=== PATIENT | female | born 1980 | race Two or more races ===

== ENCOUNTER → 2017-08-03 | Outpatient (CLI) | payer OTHER | END | disposition home or self-care (01) | LOC: LAB 11:20 | PROVIDERS: ATTEND Physician Assistant | DX: Z20.9 Contact with and (suspected) exposure to unspecified communicable disease (principal) | CPT/HCPCS: 36415; 86706; 86735; 86762; 86765; 86787 ==

== ENCOUNTER 2018-06-09 11:11 | Emergency (ER) | payer BC, MEDICAID ==
[~2018-06-09] VITALS: Ht 165.1 cm; Wt 127.5 kg
[2018-06-09 11:18] VITALS: BP 137/80
== END 2018-06-09 14:52 | disposition home or self-care (01) ==
LOC: ER 11:11
DX: E04.1 Nontoxic single thyroid nodule (principal); R20.8 Other disturbances of skin sensation
CPT/HCPCS: 70490; 93005

== ENCOUNTER → 2020-05-29 | Outpatient (CLI) | payer OTHER | END | disposition home or self-care (01) | LOC: LAB 17:17 | PROVIDERS: ATTEND Nurse Practitioner | DX: Z77.21 Contact with and (suspected) exposure to potentially hazardous body fluids (principal) | CPT/HCPCS: 36415; 86703; 86706; 86803; 87340 ==

== ENCOUNTER → 2020-06-09 | Outpatient (CLI) | payer OTHER ==
[2020-06-09 12:58] LABS: Alanine Aminotransferase 19 U/L (13-56); Albumin 3.8 g/dL (3.4-5.0); Bilirubin, Direct < 0.1 mg/dL (0-0.2)
[2020-06-09 13:00] LABS: Alkaline Phosphatase 69 U/L (45-117); Aspartate Aminotransferase 16 U/L (15-37); Bilirubin, Total 0.3 mg/dL (0.2-1.0)
== END | disposition home or self-care (01) ==
LOC: LAB 12:30
PROVIDERS: ATTEND Preventive Medicine Preventive Medicine/Occupational Environmental Medicine
DX: Z00.00 Encounter for general adult medical examination without abnormal findings (principal)
CPT/HCPCS: 36415; 80076

== ENCOUNTER → 2020-11-12 | Outpatient (CLI) | payer BC ==
[2020-11-12 13:49] LABS: Basophils # (auto) 0.1 10 ^3/uL (0-0.2); Eosinophils # (auto) 0.1 10 ^3/uL (0-0.8); Hemoglobin 10.9 g/dL (12.2-16.2); Mean Corpuscular Hemoglobin 22.8 pg (28.0-32.0); Monocytes # (auto) 0.4 10 ^3/uL (0-1.3); White Blood Cell 5.3 10^3/uL (4.4-10.8)
[2020-11-12 13:51] LABS: Basophils % (auto) 1.5 % (0.0-2.0); Eosinophils % (auto) 1.9 % (0.0-7.0); Hematocrit 34.9 % (36.0-46.0); Lymphocytes # (auto) 1.7 10 ^3/uL (0.4-5.4); Lymphocytes % (auto) 32.5 % (10.0-50.0); Mean Corpuscular Hgb Conc. 31.2 g/dL (32.0-36.0); Monocytes % (auto) 7.2 % (0.0-12.0); Neutrophils % (auto) 56.9 % (37.0-80.0); Nucleated Red Blood Cells % 0.1 %; Platelet Count (auto) 399 10^3/uL (140-450); Red Blood Cells 4.79 10^6/uL (4.0-5.20)
[2020-11-12 14:24] LABS: Albumin 3.7 g/dL (3.4-5.0); Calcium 8.7 mg/dL (8.5-10.1); Potassium 4.4 mmol/L (3.5-5.1)
[2020-11-12 14:28] LABS: BUN/Creatinine Ratio 14.3; Bilirubin, Total 0.4 mg/dL (0.2-1.0); Total Protein 7.8 g/dL (6.4-8.2)
== END | disposition home or self-care (01) ==
LOC: LAB 13:35
PROVIDERS: ATTEND Internal Medicine
DX: Z00.00 Encounter for general adult medical examination without abnormal findings (principal); E04.1 Nontoxic single thyroid nodule; Z83.3 Family history of diabetes mellitus
CPT/HCPCS: 36415; 80053; 80061; 83036; 84439; 84443; 85025

== ENCOUNTER → 2020-12-24 | Outpatient (CLI) | payer BC | END | disposition home or self-care (01) | LOC: LAB 14:09 | PROVIDERS: ATTEND Internal Medicine | DX: R30.9 Painful micturition, unspecified (principal) | CPT/HCPCS: 87086 ==

== ENCOUNTER → 2021-07-16 | Outpatient (CLI) | payer BC ==
[2021-07-16 15:23] LABS: BUN/Creatinine Ratio 13.5; Calcium 8.2 mg/dL (8.5-10.1)
== END | disposition home or self-care (01) ==
LOC: LAB 14:24
PROVIDERS: ATTEND Internal Medicine
DX: D64.9 Anemia, unspecified (principal)
CPT/HCPCS: 36415; 80048

== ENCOUNTER → 2022-06-22 | Outpatient (CLI) | payer BC ==
[2022-06-23 05:06] LABS: RPR Non Reactive (Non Reactive)
== END | disposition home or self-care (01) ==
LOC: LAB 09:47
PROVIDERS: ATTEND Internal Medicine
DX: Z11.3 Encounter for screening for infections with a predominantly sexual mode of transmission (principal)
CPT/HCPCS: 36415; 86592; 86703; 86803

== ENCOUNTER → 2022-06-29 | Outpatient (CLI) | payer BC ==
[2022-06-29 09:15] LABS: Basophils # (auto) 0.1 10 ^3/uL (0-0.2); Eosinophils # (auto) 0.1 10 ^3/uL (0-0.8); Eosinophils % (auto) 2.6 % (0.0-7.0); Hematocrit 34.8 % (36.0-46.0); Hemoglobin 10.4 g/dL (12.2-16.2); Lymphocytes # (auto) 1.5 10 ^3/uL (0.4-5.4); Lymphocytes % (auto) 31.4 % (10.0-50.0); Mean Corpuscular Hemoglobin 21.3 pg (28.0-32.0); Mean Corpuscular Volume 71.1 fL (80.0-100.0); Monocytes # (auto) 0.4 10 ^3/uL (0-1.3); Monocytes % (auto) 8.1 % (0.0-12.0); Neutrophils # (auto) 2.6 10 ^3/uL (1.6-8.6); Neutrophils % (auto) 55.9 % (37.0-80.0); Nucleated Red Blood Cells % 0.1 %; Red Blood Cells 4.89 10^6/uL (4.0-5.20); Red Cell Distribution Width 24.2 % (11.8-14.3); White Blood Cell 4.7 10^3/uL (4.4-10.8)
[2022-06-29 09:59] LABS: Leuteinizing Hormone 4.6 IU/L
[2022-06-29 10:00] LABS: Follicle Stimulating Hormone 6.94 IU/L (SEE BELOW)
== END | disposition home or self-care (01) ==
LOC: LAB 08:47
PROVIDERS: ATTEND Obstetrics & Gynecology
DX: N93.9 Abnormal uterine and vaginal bleeding, unspecified (principal)
CPT/HCPCS: 36415; 82670; 83001; 83002; 84403; 84443; 85025

== ENCOUNTER → 2022-07-16 | Outpatient (CLI) | payer BC | END | disposition home or self-care (01) | LOC: LAB 11:10 | PROVIDERS: ATTEND Obstetrics & Gynecology Obstetrics | DX: N93.9 Abnormal uterine and vaginal bleeding, unspecified (principal) | CPT/HCPCS: 88302 ==

== ENCOUNTER → 2022-09-06 | Outpatient (CLI) | payer BC ==
[2022-09-06 07:51] LABS: Basophils # (auto) 0.1 10 ^3/uL (0-0.2); Eosinophils # (auto) 0.2 10 ^3/uL (0-0.8); Eosinophils % (auto) 2.8 % (0.0-7.0); Monocytes # (auto) 0.5 10 ^3/uL (0-1.3); Neutrophils # (auto) 2.9 10 ^3/uL (1.6-8.6); Red Cell Distribution Width 17.8 % (11.8-14.3); White Blood Cell 5.6 10^3/uL (4.4-10.8)
[2022-09-06 07:56] LABS: Basophils % (auto) 1.5 % (0.0-2.0); Hematocrit 37.9 % (36.0-46.0); Hemoglobin 11.9 g/dL (12.2-16.2); Mean Corpuscular Hemoglobin 24.2 pg (28.0-32.0); Mean Corpuscular Hgb Conc. 31.4 g/dL (32.0-36.0); Mean Corpuscular Volume 77.1 fL (80.0-100.0); Monocytes % (auto) 8.2 % (0.0-12.0); Neutrophils % (auto) 51.5 % (37.0-80.0); Nucleated Red Blood Cells % 0.3 %; Red Blood Cells 4.91 10^6/uL (4.0-5.20)
[2022-09-06 08:17] LABS: Albumin 3.7 g/dL (3.4-5.0); Calcium 9.1 mg/dL (8.5-10.1); Potassium 4.3 mmol/L (3.5-5.1)
[2022-09-06 08:19] LABS: BUN/Creatinine Ratio 17.3; Bilirubin, Total 0.3 mg/dL (0.2-1.0); Total Protein 7.6 g/dL (6.4-8.2)
[2022-09-06 08:26] LABS: Follicle Stimulating Hormone 6.51 IU/L (SEE BELOW); T3 Total 0.95 ng/mL (0.60-1.81)
== END | disposition home or self-care (01) ==
LOC: LAB 07:21
DX: E34.9 Endocrine disorder, unspecified (principal)
CPT/HCPCS: 36415; 80053; 82306; 82607; 82670; 83001; 84144; 84403; 84436; 84443; 84480; 85025; 86376

== ENCOUNTER → 2022-11-05 | Outpatient (CLI) | payer BC ==
[2022-11-05 14:57] LABS: T3 Total 0.99 ng/mL (0.60-1.81)
[2022-11-05 14:58] LABS: Free T3 2.97 pg/mL (2.3-4.2)
== END | disposition home or self-care (01) ==
LOC: LAB 14:02
DX: N92.0 Excessive and frequent menstruation with regular cycle (principal); E55.9 Vitamin D deficiency, unspecified
CPT/HCPCS: 36415; 82306; 84436; 84443; 84480; 84481

== ENCOUNTER 2022-12-18 03:45 | Emergency (ER) | payer BC ==
[~2022-12-18] VITALS: Ht 165.1 cm; Wt 134.4 kg
[2022-12-18 04:34] LABS: Eosinophils # (auto) 0.1 10 ^3/uL (0-0.8); Lymphocytes # (auto) 1.5 10 ^3/uL (0.4-5.4); Monocytes # (auto) 0.5 10 ^3/uL (0-1.3); White Blood Cell 6.7 10^3/uL (4.4-10.8)
[2022-12-18 04:35] LABS: Basophils # (auto) 0.2 10 ^3/uL (0-0.2); Basophils % (auto) 2.5 % (0.0-2.0); Eosinophils % (auto) 1.3 % (0.0-7.0); Hemoglobin 10.6 g/dL (12.2-16.2); Lymphocytes % (auto) 21.7 % (10.0-50.0); Mean Corpuscular Hemoglobin 22.2 pg (28.0-32.0); Mean Corpuscular Hgb Conc. 31.1 g/dL (32.0-36.0); Mean Corpuscular Volume 71.5 fL (80.0-100.0); Monocytes % (auto) 8.2 % (0.0-12.0); Neutrophils # (auto) 4.4 10 ^3/uL (1.6-8.6); Neutrophils % (auto) 66.3 % (37.0-80.0); Nucleated Red Blood Cells % 0.1 %; Red Blood Cells 4.76 10^6/uL (4.0-5.20)
[2022-12-18 04:52] LABS: Albumin 3.7 g/dL (3.4-5.0); Calcium 8.8 mg/dL (8.5-10.1); Potassium 3.8 mmol/L (3.5-5.1)
[2022-12-18 04:56] LABS: BUN/Creatinine Ratio 19.8 (10.0-20.0); Bilirubin, Total 0.3 mg/dL (0.2-1.0); Total Protein 7.7 g/dL (6.4-8.2)
[2022-12-18 05:54] LABS: Urine WBC None Seen /hpf (0 - 5)
[2022-12-18] MEDS ORDERED: KETOROLAC TROMETH 30 MG/ML 1ML VIAL IV ONE (06:45)
[2022-12-18] MEDS ORDERED: SODIUM CHLORIDE 0.9% 1,000 ML IV ONE (06:45)
[2022-12-18 06:47] LABS: Urine Bacteria NONE SEEN /hpf (None Seen); Urine Blood Negative /uL (Negative); Urine Mucus FEW (None Seen)
[2022-12-18 11:15] VITALS: BP 132/84
== END 2022-12-18 11:23 | disposition home or self-care (01) ==
LOC: ER 03:45 → EEVIPCON 03:45 → ER 11:20
DX: R10.84 Generalized abdominal pain (principal); N83.209 Unspecified ovarian cyst, unspecified side; Z98.51 Tubal ligation status
CPT/HCPCS: 36415; 74176; 76856; 80053; 81001; 83690; 85025; 96360; 99284; J7030

== ENCOUNTER → 2023-01-03 | Outpatient (CLI) | payer BC ==
[2023-01-03 12:40] LABS: Free T4 (Free Thyroxine) 1.01 ng/dL (0.89-1.76)
[2023-01-03 12:41] LABS: Free T3 3.63 pg/mL (2.3-4.2); T3 Total 1.29 ng/mL (0.60-1.81)
== END | disposition home or self-care (01) ==
LOC: LAB 11:10
DX: Z11.4 Encounter for screening for human immunodeficiency virus [HIV] (principal)
CPT/HCPCS: 36415; 84436; 84439; 84443; 84480; 84481; 86703

== ENCOUNTER 2023-02-02 20:28 | Emergency (ER) | payer BC ==
[~2023-02-02] VITALS: Ht 165.1 cm; Wt 131.9 kg
[2023-02-02 21:54] LABS: Urine Bacteria NONE SEEN /hpf (None Seen); Urine Blood Negative /uL (Negative); Urine Hyaline Cast FEW /lpf (0 - 2); Urine Mucus MODERATE (None Seen); Urine Specific Gravity 1.028 (1.001-1.035); Urine WBC 3 /hpf (0 - 5)
[2023-02-02] MEDS ORDERED: KETOROLAC TROMETH 30 MG/ML 1ML VIAL IM ONE (22:15)
[2023-02-02] MEDS ORDERED: ONDANSETRON ODT 4 MG TAB PO ONE (22:15)
[2023-02-02 22:17] LABS: Eosinophils # (auto) 0 10 ^3/uL (0-0.8); Hematocrit 34.4 % (36.0-46.0); Hemoglobin 10.6 g/dL (12.2-16.2); White Blood Cell 8.3 10^3/uL (4.4-10.8)
[2023-02-02 22:19] LABS: Basophils # (auto) 0.1 10 ^3/uL (0-0.2); Basophils % (auto) 0.7 % (0.0-2.0); Lymphocytes # (auto) 1.2 10 ^3/uL (0.4-5.4); Lymphocytes % (auto) 15.1 % (10.0-50.0); Mean Corpuscular Hemoglobin 21.3 pg (28.0-32.0); Mean Corpuscular Hgb Conc. 30.9 g/dL (32.0-36.0); Monocytes # (auto) 0.4 10 ^3/uL (0-1.3); Monocytes % (auto) 5.1 % (0.0-12.0); Neutrophils # (auto) 6.5 10 ^3/uL (1.6-8.6); Neutrophils % (auto) 79.1 % (37.0-80.0); Red Blood Cells 4.98 10^6/uL (4.0-5.20); Red Cell Distribution Width 18.1 % (11.8-14.3)
[2023-02-02 22:39] LABS: Albumin 3.6 g/dL (3.4-5.0); BUN/Creatinine Ratio 8.7 (10.0-20.0); Calcium 8.8 mg/dL (8.5-10.1); Potassium 3.7 mmol/L (3.5-5.1)
[2023-02-02 22:41] LABS: Bilirubin, Total 0.4 mg/dL (0.2-1.0)
[2023-02-02 23:24] VITALS: BP 149/91
[2023-02-02] MEDS ORDERED: DICY10CA PO (23:55)
[2023-02-02] MEDS ORDERED: LOPE1TAB9 PO (23:55)
== END 2023-02-03 00:24 | disposition home or self-care (01) ==
LOC: ER 20:30
DX: K52.9 Noninfective gastroenteritis and colitis, unspecified (principal); Z98.51 Tubal ligation status
CPT/HCPCS: 36415; 74176; 76856; 80053; 81001; 83690; 85025; 96372; 99285; J1885; Q0162

== ENCOUNTER → 2023-03-23 | Outpatient (CLI) | payer BC ==
[~2023-03-23] MED LIST: DICY10CA PO; LOPE1TAB9 PO
[2023-03-23 10:15] LABS: Free T4 (Free Thyroxine) 0.94 ng/dL (0.89-1.76)
[2023-03-23 10:16] LABS: Free T3 2.93 pg/mL (2.3-4.2)
== END | disposition home or self-care (01) ==
LOC: LAB 09:16
DX: E03.9 Hypothyroidism, unspecified (principal)
CPT/HCPCS: 36415; 82306; 84439; 84443; 84481

== ENCOUNTER → 2023-06-01 | Outpatient (CLI) | payer BC ==
[2023-06-01 12:48] LABS: Free T4 (Free Thyroxine) 0.94 ng/dL (0.89-1.76)
== END | disposition home or self-care (01) ==
LOC: LAB 11:16
DX: E03.9 Hypothyroidism, unspecified (principal)
CPT/HCPCS: 36415; 84439; 84443; 84481

== ENCOUNTER → 2023-07-27 | Outpatient (CLI) | payer BC | END | disposition home or self-care (01) | LOC: LAB 09:19 | DX: E03.9 Hypothyroidism, unspecified (principal) | CPT/HCPCS: 36415; 84436; 84443; 84480 ==

== ENCOUNTER → 2023-09-07 | Outpatient (CLI) | payer BC ==
[2023-09-07 16:49] LABS: Free T3 3.61 pg/mL (2.3-4.2); Free T4 (Free Thyroxine) 0.98 ng/dL (0.89-1.76)
== END | disposition home or self-care (01) ==
LOC: LAB 15:39
DX: E34.9 Endocrine disorder, unspecified (principal)
CPT/HCPCS: 36415; 84439; 84443; 84481

== ENCOUNTER → 2023-09-15 | Outpatient (CLI) | payer BC ==
[2023-09-15 10:41] LABS: Urine Bacteria FEW /hpf (None Seen); Urine Blood Negative /uL (Negative); Urine Clarity Clear (Clear); Urine Color Colorless (Yellow); Urine Protein, UAD Negative (Negative); Urine Specific Gravity 1.008 (1.001-1.035); Urine Urobilinogen Normal (Negative); Urine WBC <1 /hpf (0 - 5); Urine pH 5.5 (5.0-8.0)
[2023-09-15 11:06] LABS: Basophils # (auto) 0.1 10 ^3/uL (0-0.2); Basophils % (auto) 1.4 % (0.0-2.0); Eosinophils # (auto) 0.1 10 ^3/uL (0-0.8); Hemoglobin 8.3 g/dL (12.2-16.2); Lymphocytes # (auto) 1.9 10 ^3/uL (0.4-5.4); Mean Corpuscular Hemoglobin 17.5 pg (28.0-32.0); Mean Corpuscular Volume 61.2 fL (80.0-100.0); Monocytes # (auto) 0.5 10 ^3/uL (0-1.3)
[2023-09-15 11:08] LABS: Eosinophils % (auto) 1.5 % (0.0-7.0); Hematocrit 29.2 % (36.0-46.0); Lymphocytes % (auto) 35.3 % (10.0-50.0); Mean Corpuscular Hgb Conc. 28.5 g/dL (32.0-36.0); Monocytes % (auto) 8.7 % (0.0-12.0); Neutrophils # (auto) 2.8 10 ^3/uL (1.6-8.6); Neutrophils % (auto) 53.1 % (37.0-80.0); Nucleated Red Blood Cells % 0.2 %; Red Blood Cells 4.78 10^6/uL (4.0-5.20); White Blood Cell 5.3 10^3/uL (4.4-10.8)
[2023-09-15 11:20] LABS: Alanine Aminotransferase 16 U/L (7-40); Alkaline Phosphatase 54 U/L (46-116); Anion Gap 7 (5-15); BUN/Creatinine Ratio 10.8 (10.0-20.0); Blood Urea Nitrogen 8 mg/dL (9-23); Calcium 9.3 mg/dL (8.5-10.1); Carbon Dioxide 26 mmol/L (20-30); Chloride 107 mmol/L (98-107); Glucose 90 mg/dL (74-106); LDL Cholesterol 101 mg/dL (< 100); Potassium 4.1 mmol/L (3.5-5.1); Sodium 140 mmol/L (136-145); Triglycerides 86 mg/dL (< 150)
[2023-09-15 11:21] LABS: Albumin 4.3 g/dL (3.2-4.8); Aspartate Aminotransferase 20 U/L (13-40); Cholesterol 153 mg/dL (< 200)
[2023-09-15 11:22] LABS: Bilirubin, Total 0.3 mg/dL (0.2-1.0); HDL Cholesterol 38 mg/dL (40-59); Total Protein 7.2 g/dL (5.7-8.2)
[2023-09-15 12:04] LABS: Hypochromia Marked; Platelet Estimate Adequate
== END | disposition home or self-care (01) ==
LOC: LAB 09:56
PROVIDERS: ATTEND Nurse Practitioner Gerontology
DX: Z00.01 Encounter for general adult medical examination with abnormal findings (principal); E66.01 Morbid (severe) obesity due to excess calories
CPT/HCPCS: 36415; 80053; 80061; 81001; 82306; 83036; 85025

== ENCOUNTER 2023-10-27 17:39 | Emergency (ER) | payer BC ==
[~2023-10-27] VITALS: Ht 165.1 cm; Wt 125.0 kg
[2023-10-27 19:00] VITALS: BP 127/78; PULSE 94; RESP 16; TEMP 97.3; O2SAT 100
[2023-10-27] MEDS ORDERED: HYDR-4902 PO (20:00)
[2023-10-27] MEDS: HYDROcodone-ACET 5/325MG TAB PO ONE (20:12)
== END 2023-10-27 20:20 | disposition home or self-care (01) ==
LOC: ER 17:39
DX: S83.8X1A Sprain of other specified parts of right knee, initial encounter (principal); I80.01 Phlebitis and thrombophlebitis of superficial vessels of right lower extremity; Z98.890 Other specified postprocedural states; Z79.899 Other long term (current) drug therapy; X58.XXXA Exposure to other specified factors, initial encounter; Y93.39 Activity, other involving climbing, rappelling and jumping off; Y92.89 Other specified places as the place of occurrence of the external cause; Y99.8 Other external cause status
CPT/HCPCS: 29505; 73562; 93971

== ENCOUNTER → 2023-11-04 | Outpatient (CLI) | payer BC ==
[~2023-11-04] MED LIST changes: +HYDR-4902 PO
[2023-11-04 10:47] LABS: Basophils # (auto) 0.1 10 ^3/uL (0-0.2); Eosinophils # (auto) 0.1 10 ^3/uL (0-0.8); Eosinophils % (auto) 1.6 % (0.0-7.0); Hemoglobin 8.7 g/dL (12.2-16.2); Lymphocytes # (auto) 1.6 10 ^3/uL (0.4-5.4); Mean Corpuscular Hemoglobin 17.4 pg (28.0-32.0); Mean Corpuscular Hgb Conc. 28.4 g/dL (32.0-36.0); Mean Corpuscular Volume 61.4 fL (80.0-100.0); Monocytes # (auto) 0.4 10 ^3/uL (0-1.3)
[2023-11-04 10:49] LABS: Basophils % (auto) 1.5 % (0.0-2.0); Hematocrit 30.8 % (36.0-46.0); Lymphocytes % (auto) 32.5 % (10.0-50.0); Monocytes % (auto) 7.5 % (0.0-12.0); Neutrophils # (auto) 2.8 10 ^3/uL (1.6-8.6); Neutrophils % (auto) 56.9 % (37.0-80.0); Nucleated Red Blood Cells % 0.1 %; Red Blood Cells 5.01 10^6/uL (4.0-5.20); White Blood Cell 4.9 10^3/uL (4.4-10.8)
[2023-11-04 11:10] LABS: % Iron Saturation 4.4 % (15-50); Alanine Aminotransferase 12 U/L (7-40); Albumin 4.6 g/dL (3.2-4.8); Alkaline Phosphatase 61 U/L (46-116); Anion Gap 6 (5-15); Aspartate Aminotransferase 18 U/L (13-40); BUN/Creatinine Ratio 13.8 (10.0-20.0); Blood Urea Nitrogen 11 mg/dL (9-23); Calcium 9.4 mg/dL (8.5-10.1); Carbon Dioxide 29 mmol/L (20-30); Chloride 105 mmol/L (98-107); Glucose 84 mg/dL (74-106); Sodium 140 mmol/L (136-145)
[2023-11-04 11:11] LABS: Bilirubin, Total 0.5 mg/dL (0.2-1.0); Total Protein 7.9 g/dL (5.7-8.2)
[2023-11-04 11:14] LABS: Ferritin 5.6 ng/mL (10-291); T3 Total 0.97 ng/mL (0.60-1.81)
[2023-11-04 12:12] LABS: Red Cell Distribution Width 23.2 % (11.8-14.3)
[2023-11-04 12:23] LABS: Platelet Estimate Adequate
[2023-11-04 12:24] LABS: Anisocytosis Slight; Hypochromia Moderate; Ovalocytes MODERATE
[2023-11-05 08:06] LABS: Thyroxine (T4) 7.9 ug/dL (4.5-12.0)
== END | disposition home or self-care (01) ==
LOC: LAB 10:26
PROVIDERS: ATTEND Student in an Organized Health Care Education/Training Program
DX: Z00.00 Encounter for general adult medical examination without abnormal findings (principal); N83.209 Unspecified ovarian cyst, unspecified side; D50.0 Iron deficiency anemia secondary to blood loss (chronic)
CPT/HCPCS: 36415; 80053; 82728; 83021; 83540; 83550; 84436; 84443; 84480; 85025; 85660

== ENCOUNTER → 2023-12-28 | Outpatient (CLI) | payer BC ==
[2023-12-28 15:07] LABS: Basophils # (auto) 0.1 10 ^3/uL (0-0.2); Eosinophils # (auto) 0.2 10 ^3/uL (0-0.8); Hemoglobin 9.3 g/dL (12.2-16.2); Monocytes # (auto) 0.6 10 ^3/uL (0-1.3)
[2023-12-28 15:09] LABS: Basophils % (auto) 1.5 % (0.0-2.0); Eosinophils % (auto) 3.9 % (0.0-7.0); Hematocrit 32.3 % (36.0-46.0); Lymphocytes # (auto) 1.9 10 ^3/uL (0.4-5.4); Lymphocytes % (auto) 31.6 % (10.0-50.0); Mean Corpuscular Hemoglobin 18.2 pg (28.0-32.0); Mean Corpuscular Hgb Conc. 28.8 g/dL (32.0-36.0); Mean Corpuscular Volume 63.1 fL (80.0-100.0); Monocytes % (auto) 9.7 % (0.0-12.0); Neutrophils # (auto) 3.3 10 ^3/uL (1.6-8.6); Neutrophils % (auto) 53.3 % (37.0-80.0); Red Blood Cells 5.12 10^6/uL (4.0-5.20); White Blood Cell 6.2 10^3/uL (4.4-10.8)
[2023-12-28 15:10] LABS: Red Cell Distribution Width 21.3 % (11.8-14.3)
[2023-12-28 15:47] LABS: Alanine Aminotransferase 15 U/L (7-40); Albumin 4.5 g/dL (3.2-4.8); Alkaline Phosphatase 60 U/L (46-116); Anion Gap 4 (5-15); Aspartate Aminotransferase 12 U/L (13-40); BUN/Creatinine Ratio 10.8 (10.0-20.0); Blood Urea Nitrogen 8 mg/dL (9-23); Calcium 9.6 mg/dL (8.5-10.1); Carbon Dioxide 28 mmol/L (20-30); Chloride 107 mmol/L (98-107); Glucose 88 mg/dL (74-106); Potassium 3.8 mmol/L (3.5-5.1); Sodium 139 mmol/L (136-145)
[2023-12-28 15:48] LABS: Bilirubin, Total 0.3 mg/dL (0.2-1.0); Total Protein 7.6 g/dL (5.7-8.2)
[2023-12-29 08:06] LABS: Immunoglobulin A 156 mg/dL (87-352)
[2023-12-29 13:07] LABS: Albumin 3.4 g/dL (2.9-4.4); Alpha-1-Globulin 0.3 g/dL (0.0-0.4); Alpha-2-Globulin 0.9 g/dL (0.4-1.0); Gamma Globulin 1.5 g/dL (0.4-1.8); Protein Total Serum 7.4 g/dL (6.0-8.5)
[2023-12-31 18:06] LABS: t-Transglutaminase (tTG) IgA <2 U/mL (0-3)
[2024-01-01 18:06] LABS: Endomysial IgA Antibody Negative (Negative)
== END | disposition home or self-care (01) ==
LOC: LAB 14:43
DX: D64.9 Anemia, unspecified (principal); D50.9 Iron deficiency anemia, unspecified
CPT/HCPCS: 36415; 80053; 82607; 82784; 83010; 83516; 84155; 84165; 85025; 85045; 86255; 86880; 86885

== ENCOUNTER → 2024-02-03 | Outpatient (CLI) | payer BC ==
[2024-02-03 14:38] LABS: Free T4 (Free Thyroxine) 1.03 ng/dL (0.89-1.76)
[2024-02-06 18:58] LABS: T3 Total 0.93 ng/mL (0.60-1.81)
== END | disposition home or self-care (01) ==
LOC: LAB 14:00
PROVIDERS: ATTEND Student in an Organized Health Care Education/Training Program
DX: D50.8 Other iron deficiency anemias (principal); N80.03 Adenomyosis of the uterus
CPT/HCPCS: 36415; 84439; 84443; 84480

== ENCOUNTER 2024-03-16 06:23 | Inpatient (IN) | payer BC ==
[2024-03-12 10:13] LABS: Urine Bacteria None Seen /hpf (None Seen); Urine WBC None Seen /hpf (0 - 5)
[2024-03-12 10:19] LABS: Basophils # (auto) 0.1 10 ^3/uL (0-0.2); Eosinophils # (auto) 0.3 10 ^3/uL (0-0.8); Neutrophils # (auto) 3.3 10 ^3/uL (1.6-8.6); Nucleated Red Blood Cells % 0.1 %
[2024-03-12 10:21] LABS: Basophils % (auto) 1.4 % (0.0-2.0); Eosinophils % (auto) 4.2 % (0.0-7.0); Hematocrit 42.6 % (36.0-46.0); Hemoglobin 13.8 g/dL (12.2-16.2); Mean Corpuscular Hemoglobin 26.2 pg (28.0-32.0); Mean Corpuscular Hgb Conc. 32.5 g/dL (32.0-36.0); Mean Corpuscular Volume 80.6 fL (80.0-100.0); Monocytes # (auto) 0.5 10 ^3/uL (0-1.3); Monocytes % (auto) 7.5 % (0.0-12.0); Neutrophils % (auto) 53.9 % (37.0-80.0); Red Blood Cells 5.29 10^6/uL (4.0-5.20); White Blood Cell 6.2 10^3/uL (4.4-10.8)
[2024-03-12 10:22] LABS: Red Cell Distribution Width 27.2 % (11.8-14.3)
[2024-03-12 10:36] LABS: Anisocytosis Moderate; Platelet Estimate Adequate
[2024-03-12 10:41] LABS: Urine Blood Negative /uL (Negative); Urine Clarity Clear (Clear); Urine Protein, UAD Negative (Negative); Urine Specific Gravity 1.007 (1.001-1.035); Urine Urobilinogen Normal (Negative)
[2024-03-12 10:44] LABS: Urine Color Light-Yellow (Yellow)
[2024-03-12 11:46] LABS: Alanine Aminotransferase 17 U/L (7-40); Albumin 4.8 g/dL (3.2-4.8); Alkaline Phosphatase 70 U/L (46-116); Anion Gap 6 (5-15); Aspartate Aminotransferase 14 U/L (13-40); BUN/Creatinine Ratio 12.3 (10.0-20.0); Blood Urea Nitrogen 9 mg/dL (9-23); Calcium 10.1 mg/dL (8.7-10.4); Carbon Dioxide 30 mmol/L (20-30); Chloride 103 mmol/L (98-107); Glucose 87 mg/dL (74-106); Potassium 3.8 mmol/L (3.5-5.1); Sodium 139 mmol/L (136-145)
[2024-03-12 11:47] LABS: Bilirubin, Total 0.3 mg/dL (0.2-1.0); Total Protein 7.7 g/dL (5.7-8.2)
[~2024-03-16] VITALS: Ht 165.1 cm; Wt 136.9 kg
[~2024-03-16 06:23] MED LIST changes: -DICY10CA PO; -HYDR-4902 PO; -LOPE1TAB9 PO; +[UNRECOGNIZED DRUG - CODE] PO
[2024-03-16] MEDS: FAMOTIDINE (10MG/ML) 2ML VL IV ONE (07:10)
[2024-03-16] MEDS ORDERED: MIDAZOLAM HCL 2MG/2ML 2ml VIAL (1mg/ml) ONE (07:21)
[2024-03-16] MEDS ORDERED: HYDROmorphone HCL 2 MG/ML VL/or syr ONE (07:21)
[2024-03-16] MEDS ORDERED: fentaNYL CITRATE 100 MCG/2 ML VL ONE ×2 (07:21→08:17)
[2024-03-16] MEDS ORDERED: ePHEDrine SULFATE 50 MG/ML AMP ONE (07:22)
[2024-03-16] MEDS ORDERED: DexAMETHasone SOD PHOS 10MG/1ML VIAL INJ ONE (07:22)
[2024-03-16] MEDS ORDERED: KETOROLAC TROMETH 30 MG/ML 1ML VIAL ONE (07:22)
[2024-03-16] MEDS ORDERED: GLYCOPYRROLATE 0.2 MG/ML 1ML VIAL ONE (07:22)
[2024-03-16] MEDS ORDERED: ONDANSETRON HCL 4 MG/2 ML VIAL ONE (07:22)
[2024-03-16] MEDS ORDERED: LIDOCAINE 2% (LOCAL ANESTH.) PF 5ml SDV ONE (07:22)
[2024-03-16] MEDS ORDERED: PROPOFOL 10 MG/ML 20 ML IV ONE (07:22)
[2024-03-16] MEDS ORDERED: KETAMINE 50mg/ML 1ml syringe ONE (07:31)
[2024-03-16] MEDS ORDERED: METOCLOPRAMIDE HCL 5MG/ml INJ 2ml VIAL ONE (07:32)
[2024-03-16] MEDS ORDERED: ROCURONIUM 10MG/ML 10ML VIAL IV ONE (07:32)
[2024-03-16] MEDS: ceFAZolin 2 GM/D5W50ml 50 ML IV ONE (07:44)
[2024-03-16] MEDS ORDERED: ONDANSETRON HCL 4 MG/2 ML VIAL IV PRN (07:45)
[2024-03-16] MEDS ORDERED: MORPHINE SULFATE INJ 2 MG/ml SYRG IV PRN (07:45)
[2024-03-16] MEDS ORDERED: NITROGLYCERIN 0.4 MG SL TAB SL PRN (07:45)
[2024-03-16] MEDS ORDERED: ceFAZolin 1GM VL ONE (07:51)
[2024-03-16] MEDS ORDERED: SUGAMMADEX 200mg/2ml Vial (100MG/ML) IV ONE (08:27)
[2024-03-16] MEDS: LIDOCAINE W/ EPINEPHRINE 1% 20ML VIAL ONE (09:02)
[2024-03-16] MEDS ORDERED: MEPERIDINE HCL (50 MG/ML) 1 ML VIAL ONE (09:12)
[2024-03-16 09:46] VITALS: O2SAT 100
[2024-03-16] MEDS: HYDROmorphone HCL 2 MG/ML VL/or syr IV PRN ×2 (09:53→13:58)
[2024-03-16] MEDS: HYDROcodone-ACET 5/325MG TAB ONE (10:36)
[2024-03-16] MEDS: HYDROcodone-ACET 5/325MG TAB PO ONE (10:42)
[2024-03-16 12:04] VITALS: RESP 18; O2SAT 97
[2024-03-16] MEDS ORDERED: HYDR-4072 PO (12:23)
[2024-03-16] MEDS ORDERED: IBUP-1455 PO (12:23)
[2024-03-16 12:30] VITALS: BP 123/75; PULSE 105; RESP 18; TEMP 97.1; O2SAT 96
[2024-03-16] MEDS: KETOROLAC TROMETH 30 MG/ML 1ML VIAL IV PRN (16:30)
[2024-03-16] MEDS: D5W/SOD CHL 0.45%/KCL 20MEQ 1,000 ML IV SCH (16:31)
[2024-03-16 16:40] VITALS: BP 137/78; PULSE 18; TEMP 98.6; O2SAT 98
[2024-03-16 20:09] LABS: Basophils # (auto) 0 10 ^3/uL (0-0.2); Basophils % (auto) 0.1 % (0.0-2.0); Eosinophils # (auto) 0 10 ^3/uL (0-0.8); Monocytes # (auto) 0.5 10 ^3/uL (0-1.3)
[2024-03-16 20:11] LABS: Hematocrit 39.6 % (36.0-46.0); Hemoglobin 12.9 g/dL (12.2-16.2); Lymphocytes # (auto) 0.7 10 ^3/uL (0.4-5.4); Lymphocytes % (auto) 6.1 % (10.0-50.0); Mean Corpuscular Hemoglobin 26.7 pg (28.0-32.0); Mean Corpuscular Hgb Conc. 32.6 g/dL (32.0-36.0); Mean Corpuscular Volume 81.9 fL (80.0-100.0); Monocytes % (auto) 4.2 % (0.0-12.0); Neutrophils # (auto) 9.7 10 ^3/uL (1.6-8.6); Neutrophils % (auto) 89.6 % (37.0-80.0); Red Blood Cells 4.83 10^6/uL (4.0-5.20); White Blood Cell 10.8 10^3/uL (4.4-10.8)
[2024-03-16 20:13] LABS: Red Cell Distribution Width 26.3 % (11.8-14.3)
[2024-03-16 21:00] VITALS: BP 126/84; PULSE 111; RESP 19; TEMP 97.7; O2SAT 98
[2024-03-16] MEDS: BISACODYL 5 MG EC TAB PO SCH (22:36)
[2024-03-17] VITALS (7 sets, daily range): BP systolic 104–150; BP diastolic 68–94; PULSE 96–123; RESP 14–19; TEMP 98.2–98.7; O2SAT 95–98
[2024-03-17] MEDS: ONDANSETRON HCL 4 MG/2 ML VIAL IV ONE (02:52)
[2024-03-17 07:40] LABS: Basophils # (auto) 0 10 ^3/uL (0-0.2); Basophils % (auto) 0.1 % (0.0-2.0); Eosinophils # (auto) 0 10 ^3/uL (0-0.8); Eosinophils % (auto) 0.1 % (0.0-7.0); Hematocrit 37.7 % (36.0-46.0); Hemoglobin 12.4 g/dL (12.2-16.2); Lymphocytes # (auto) 1.5 10 ^3/uL (0.4-5.4); Lymphocytes % (auto) 17.3 % (10.0-50.0); Mean Corpuscular Hgb Conc. 32.9 g/dL (32.0-36.0); Mean Corpuscular Volume 82.1 fL (80.0-100.0); Monocytes # (auto) 0.8 10 ^3/uL (0-1.3); Monocytes % (auto) 9.8 % (0.0-12.0); Neutrophils # (auto) 6.2 10 ^3/uL (1.6-8.6); Neutrophils % (auto) 72.7 % (37.0-80.0); Red Blood Cells 4.59 10^6/uL (4.0-5.20); White Blood Cell 8.5 10^3/uL (4.4-10.8)
[2024-03-17 07:48] LABS: Red Cell Distribution Width 25.4 % (11.8-14.3)
[2024-03-17] MEDS ORDERED: HYDROcodone-ACET 10/325MG TAB PO PRN (08:00)
[2024-03-17] MEDS: D5W/SOD CHL 0.45%/KCL 20MEQ 1,000 ML IV SCH (09:41)
[2024-03-17] MEDS: HYDROcodone-ACET 7.5/325MG TAB PO PRN (13:50)
[2024-03-18 01:00] VITALS: BP 138/90; PULSE 96; RESP 18; TEMP 99.4; O2SAT 95
[2024-03-18 05:00] VITALS: BP 114/80; PULSE 98; RESP 17; TEMP 98.5; O2SAT 95
[2024-03-18 08:27] VITALS: O2SAT 98
[2024-03-18 09:00] VITALS: BP 128/97; PULSE 101; RESP 22; TEMP 98; O2SAT 99
[2024-03-18 12:27] VITALS: BP 123/84; PULSE 102; RESP 16; TEMP 98.5; O2SAT 98
[2024-03-18 13:26] VITALS: TEMP 36.9
== END 2024-03-18 14:43 | disposition home or self-care (01) | DRG 743 ==
LOC: SUR 06:23 → OVERFLOW 07:46 → WEST WING 11:56
PROVIDERS: ADMIT Obstetrics & Gynecology; ATTEND Obstetrics & Gynecology
PROC: 0UT70ZZ Resection of Bilateral Fallopian Tubes, Open Approach (ICD-10-PCS; 2024-03-16)
PROC: 0UT90ZL Resection of Uterus, Supracervical, Open Approach (ICD-10-PCS; principal; 2024-03-16 07:44)
DX: N80.03 Adenomyosis of the uterus (principal); G89.29 Other chronic pain; N92.0 Excessive and frequent menstruation with regular cycle; N83.201 Unspecified ovarian cyst, right side; E55.9 Vitamin D deficiency, unspecified; D25.9 Leiomyoma of uterus, unspecified; Z79.899 Other long term (current) drug therapy
CPT/HCPCS: 36415; 80053; 81001; 81025; 84702; 85025; 86850; 86900; 86901; G0378; J0690; J1100; J1885; J2001; J2250; J2405; J2704; J3490; J7060

== ENCOUNTER 2025-02-18 13:08 | Outpatient (CLI) | payer BC ==
[~2025-02-18 13:08] MED LIST changes: +HYDR-4072 PO; +IBUP-1455 PO
[2025-02-18 13:46] LABS: Hematocrit 45.0 % (36.0-46.0); Hemoglobin 14.9 g/dL (12.2-16.2); Mean Corpuscular Hemoglobin 28.6 pg (28.0-32.0); Mean Corpuscular Volume 86.3 fL (80.0-100.0); Nucleated Red Blood Cells % 0.2 %
[2025-02-18 13:53] LABS: Iron 69.0 ug/dL (50-170)
[2025-02-18 13:56] LABS: Total Iron Binding Capacity 302.0 ug/dL (250-425)
[2025-02-18 13:57] LABS: Alanine Aminotransferase 18 U/L (7-40); Albumin 4.6 g/dL (3.2-4.8); Alkaline Phosphatase 63 U/L (46-116); Anion Gap 8 (5-15); BUN/Creatinine Ratio 14.3 (10.0-20.0); Bilirubin, Total 0.6 mg/dL (0.2-1.0); Blood Urea Nitrogen 11 mg/dL (9-23); Calcium 10.2 mg/dL (8.7-10.4); Carbon Dioxide 28 mmol/L (20-31); Chloride 107 mmol/L (98-107); Glucose 78 mg/dL (74-106); HDL Cholesterol 43 mg/dL (40-59); Potassium 3.9 mmol/L (3.5-5.1); Sodium 143 mmol/L (136-145); Total Protein 7.7 g/dL (5.7-8.2); Triglycerides 148 mg/dL (< 150)
[2025-02-18 14:07] LABS: Cholesterol 212 mg/dL (< 200)
[2025-02-18 15:48] LABS: Hepatitis A Total Antibody Positive (Negative); Hepatitis B Surface Antigen Negative (Negative); Hepatitis C Antibody Negative (Negative)
[2025-02-20 01:06] LABS: Chlamydia Trachomatis, NAA Negative (Negative); Neisseria gonorrhoeae, NAA Negative (Negative)
== END 2025-02-18 17:00 | disposition home or self-care (01) ==
LOC: LAB 13:08
PROVIDERS: ATTEND Licensed Practical Nurse
DX: E55.9 Vitamin D deficiency, unspecified (principal); D50.9 Iron deficiency anemia, unspecified; N83.201 Unspecified ovarian cyst, right side; Z13.220 Encounter for screening for lipoid disorders; Z13.6 Encounter for screening for cardiovascular disorders; Z12.11 Encounter for screening for malignant neoplasm of colon; Z13.1 Encounter for screening for diabetes mellitus; Z13.29 Encounter for screening for other suspected endocrine disorder
CPT/HCPCS: 36415; 80053; 80061; 82043; 82306; 82728; 83036; 83540; 83550; 84443; 85025; 86703; 86704; 86706; 86708; 86780; 86803; 87340

== ENCOUNTER 2025-06-25 09:30 | Outpatient (CLI) | payer BC | END 2025-06-25 17:00 | disposition home or self-care (01) | LOC: LAB 09:30 | PROVIDERS: ATTEND Obstetrics & Gynecology | DX: Z01.812 Encounter for preprocedural laboratory examination (principal); R87.810 Cervical high risk human papillomavirus (HPV) DNA test positive ==